=== PATIENT | male | born 1985 | race Caucasian/White ===

== ENCOUNTER → 2023-11-15 | Outpatient (CLI) | payer SELFPAY | LOC: M SOG 08:03 | PROVIDERS: ATTEND Physician Assistant | DX: M25.462 Effusion, left knee (principal) ==

== ENCOUNTER → 2023-11-29 | Outpatient (CLI) | payer SELFPAY | LOC: M PLARAD 07:46 | PROVIDERS: ATTEND Physician Assistant | DX: M23.301 Other meniscus derangements, unspecified lateral meniscus, left knee (principal); M25.462 Effusion, left knee ==

== ENCOUNTER → 2023-12-11 | Outpatient (CLI) | payer OTHER ==
[2023-12-11 10:56] LABS: SOURCE, BODY FLUID LFT KNEE; SOURCE, BODY FLUID CRYSTALS LFT KNEE; SYNOVIAL FLUID COLOR RED (COLORLESS)
[2023-12-11 11:32] LABS: HEMATOCRIT 39.5 % (42.0-52.0); HEMOGLOBIN 12.9 g/dl (13.5-17.5); MEAN CORPUSCULAR HEMOGLOBIN 29.3 pg (27.0-33.0); MEAN CORPUSCULAR HGB CONC 32.7 g/dl (32.0-36.5); MEAN CORPUSCULAR VOLUME 89.8 fl (80.0-96.0); PLATELET COUNT, AUTOMATED 434 10^3/uL (150-450); WHITE BLOOD COUNT 8.9 10^3/uL (4.0-10.0)
[2023-12-11 13:18] LABS: GC DNA AMPLIFICATION NEGATIVE (NEGATIVE)
[2023-12-11 14:39] LABS: ERYTHROCYTE SEDIMENTATION RATE 91 mm/hr (0-15)
== END ==
LOC: M LAB 09:54
PROVIDERS: ATTEND Orthopaedic Surgery
DX: M25.462 Effusion, left knee (principal); M23.307 Other meniscus derangements, unspecified meniscus, left knee

== ENCOUNTER 2024-02-12 13:51 | Day surgery (SDC) | payer MEDICAID ==
[~2024-02-12] VITALS: Ht 180.3 cm; Wt 58.7 kg
[~2024-02-12 13:51] MED LIST: ACET325C5 PO; CELE1CAP4 PO; COLA100C5 PO; DOXY-440 PO; OXYC-517 PO
[2024-02-12] MEDS ORDERED: LIDOCAINE 1% SDV 5ML VIAL SC PRN (14:05)
[2024-02-12] MEDS ORDERED: LR 1,000 ML IV SCH ×2 (14:05→17:40)
[2024-02-12] MEDS ORDERED: MIDAZOLAM INJ 2MG/2ML VIAL As Ordered ONE (16:12)
[2024-02-12] MEDS ORDERED: ACETAMINOPHEN 1000MG 100ML IV BAG As Ordered ONE (16:13)
[2024-02-12] MEDS ORDERED: ONDANSETRON 4MG 2ML VIAL As Ordered ONE (16:13)
[2024-02-12] MEDS ORDERED: KETOROLAC 60MG 2ML VIAL As Ordered ONE (16:13)
[2024-02-12] MEDS ORDERED: LIDOCAINE 2% 100MG/5ML SDV (FOR ANES.) As Ordered ONE (16:13)
[2024-02-12] MEDS ORDERED: fentaNYL 100 MCG/2 ML INJECTION As Ordered ONE (16:13)
[2024-02-12] MEDS ORDERED: propofoL 200 MG/20 ML VIAL As Ordered ONE (16:13)
[2024-02-12] MEDS: ceFAZolin 2 GM/D5W 50 ML IV BAG As Ordered ONE (16:39)
[2024-02-12] MEDS: TRANEXAMIC ACID 100 MG/ML 10ML VIAL As Ordered ONE (16:40)
[2024-02-12] MEDS: EPINEPHrine 1MG/ML INJ 30ML MD-VIAL As Ordered ONE (17:04)
[2024-02-12] MEDS ORDERED: oxyCODONE 5MG TAB PO PRN (17:40)
[2024-02-12] MEDS ORDERED: HYDROMORPHONE HCL 0.5 MG/ 0.5 ML SYRINGE IV PRN (17:40)
[2024-02-12] MEDS ORDERED: fentaNYL 100 MCG/2 ML INJECTION IV PRN (17:40)
[2024-02-12] MEDS ORDERED: ONDANSETRON 4MG 2ML VIAL IV PRN (17:40)
[2024-02-12 18:30] VITALS: BP 134/89; TEMP 97.8; O2SAT 100
== END 2024-02-12 18:55 | disposition home or self-care (01) ==
LOC: M SDC 13:51
PROVIDERS: ATTEND Orthopaedic Surgery
DX: M23.222 Derangement of posterior horn of medial meniscus due to old tear or injury, left knee (principal); F17.210 Nicotine dependence, cigarettes, uncomplicated; F12.10 Cannabis abuse, uncomplicated
CPT/HCPCS: 27570; 29881; J0131; J0171; J0665; J0690; J1100; J1885; J2250; J2405; J3010